=== PATIENT | male | born 1960 | race Caucasian/White ===

== ENCOUNTER 2023-06-14 19:08 | Emergency (ER) | payer OTHER, SELFPAY ==
[2023-06-14 19:30] VITALS: BP 235/110; PULSE 106; RESP 16; TEMP 36.4; O2SAT 100
--- NOTE | 2023-06-14 19:35 | ECG_ITS ---
Measurements Intervals [place] Rate: 94 P: 48 MA: 161 QRS: 52 QRSD: 107 T: 48 QT: 364 QTc: 456 Interpretive Statements SINUS RHYTHM WITHSINUS ARRHYTHMIA ATRIAL PREMATURE COMPLEXES NONSPECIFIC ST & T-WAVE ABNORMALITY- DIFFUSE LEADS BASELINE WANDER- II, III, AVR, AVF BORDERLINE ECG NO PREVIOUS ECG AVAILABLE FOR COMPARISON Electronically Signed On 06-15-2023 6:38:13 TELEVISION ANNOUNCER by Christopher Salamanca D.O.
[2023-06-14 22:03] VITALS: BP 226/107; PULSE 94; RESP 22; TEMP 36.6; O2SAT 100
[2023-06-14] MEDS: LOSARTAN POTASSIUM 100 MG TABLET PO (22:39)
--- NOTE | 2023-06-14 22:41 | ED.GENADULT ---
HPI - General Adult General Chief complaint: Recheck/Abnormal Lab/Rx Stated complaint: HIGH BP Time Seen by Provider: 06/14/23 22:33 History of Present Illness HPI narrative: This is a pleasant 8-year-old male with history of hypertension presenting for a medication refill. Patient has been on losartan 100 mg. He started running out about a week ago had been cutting his pills half. He finally ran out 2 days ago. He checked his blood pressure home it was elevated. He then came to the hospital for evaluation. The patient is currently asymptomatic and denies chest pain difficulty breathing neurologic deficits. He would like a referral to a new primary care physician. patient has anxiety and says that doctors make him very nervous. Related Data Allergies Allergy/AdvReac Type Severity Reaction Status Date / Time No Known Allergies Allergy Unverified 10/09/15 07:41 [facility] Past Medical History Medical History (Updated 06/14/23 @ 22:49 by Salbador Law MD) Hypertension Family History Family History (Updated 12/27/15 @ 23:21 by DOCTOR UNKNOWN) Mother Patient's mother is in good health Family history of malignant neoplasm of breast in first degree relative Sibling Patient's sister is in good health Father Family history of Alzheimer's disease Patient's father is Other Malignant neoplasm of prostate Social History Social History Smoking status: Heavy tobacco smoker Alcohol intake: never Exam Narrative: APPEARANCE: No apparent distress. Head: atraumatic. EYES: EOMI, NOSE: Atraumatic NECK: Trachea midline RESPIRATORY: No increased rate of breathing, clear to auscultation, speaking in full sentences CARDIOVASCULAR: RRR, no peripheral edema ABDOMINAL: Non-distended MUSCULOSKELETAl: No obvious deformities NEURO: Alert. Cranial nerves 2-12 grossly intact. Sensation light touch, motor function cerebellar function intact for 4 extremities. Gait exam was normal. SKIN:: Warm, dry. Normal color PSYCHIATRIC: Normal affect Course Vital Signs Vital signs: Vital Signs Temperature 97.6 F 06/14/23 19:30 Pulse Rate 106 H 06/14/23 19:30 Respiratory Rate 16 06/14/23 19:30 Blood Pressure 235/110 H 06/14/23 19:30 Pulse Oximetry 100 06/14/23 19:30 Oxygen Delivery Room Air 06/14/23 19:30 Temperature 97.8 F 06/14/23 22:03 Pulse Rate 94 06/14/23 22:03 Respiratory Rate 22 H 06/14/23 22:03 Blood Pressure 226/107 H 06/14/23 22:03 Pulse Oximetry 100 06/14/23 22:03 Oxygen Delivery Room Air 06/14/23 19:30 Medical Decision Making MDM Narrative Medical decision making narrative: -Course: 62-year-old male presenting with hypertension and requesting medication refill. Patient's blood pressures are elevated on arrival. He is asymptomatic. Patient will be given his home dose of hypertensive medications and given primary care follow-up. 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 un Interventions: Losartan 100 mg Discharge with primary care follow-up Rx: Losartan 100 mg Vital Signs Vital Signs: Vital Signs Temperature 97.6 F 06/14/23 19:30 Pulse Rate 106 H 06/14/23 19:30 Respiratory Rate 16 06/14/23 19:30 Blood Pressure 235/110 H 06/14/23 19:30 Pulse Oximetry 100 06/14/23 19:30 Oxygen Delivery Room Air 06/14/23 19:30 Temperature 97.8 F 06/14/23 22:03 Pulse Rate 94 06/14/23 22:03 Respiratory Rate 22 H 06/14/23 22:03 Blood Pressure 226/107 H 06/14/23 22:03 Pulse Oximetry 100 06/14/23 22:03 Oxygen Delivery Room Air 06/14/23 19:30 Discharge Plan Discharge Clinical Impression: Encounter for medication refill, Asymptomatic Patient Disposition: Home, Self-Care
[2023-06-14 23:08] VITALS: BP 189/106; PULSE 79; RESP 20; O2SAT 99
--- NOTE | 2023-06-14 23:09 | PC.NURSE ---
Patient's blood pressure was 189/106. Notified EDP Dr. Law who still was okay with patient being discharged.
== END 2023-06-14 23:11 | disposition home or self-care (01) ==
LOC: ANHED 22:55
PROVIDERS: Emergency Provider Emergency Medicine
DX: I10 Essential (primary) hypertension (principal); Z76.0 Encounter for issue of repeat prescription; F17.200 Nicotine dependence, unspecified, uncomplicated; I49.1 Atrial premature depolarization; R94.31 Abnormal electrocardiogram [ECG] [EKG]
CPT/HCPCS: 93005; 99283; A9270